=== PATIENT | male | born 1970 | race Caucasian/White ===

== ENCOUNTER 2017-01-31 09:51 | Emergency (ER) | payer BC, OTHER ==
[~2017-01-31] VITALS: Ht 177.8 cm; Wt 90.7 kg
[2017-01-31] MEDS ORDERED: PRED-220 PO (10:40)
[2017-01-31] MEDS ORDERED: CYCL-331 PO (10:40)
--- NOTE | 2017-01-31 10:40 | PHYS DOC ---
Past History Past Medical History: Other Past Surgical History: Appendectomy, Tonsillectomy, Other Alcohol Use: Occasionally Drug Use: None Adult General Chief Complaint Chief Complaint: BACK PAIN OR INJURY HPI HPI Patient is a 46 year old male who presents with complaint of low back pain. Patient states that his symptoms have been worsening over the past 3 days. Patient states that he has a history of back injury stemming from a home the accident in 2004 while serving with the . The patient states that his pain has gradually worsened since Saturday. Patient states that he resides in [place] where he is currently receiving spine surgery evaluation. Patient states that he had an MRA done within the last 2 weeks and has a consultation with the spine surgeon next week. Patient currently rates his pain as 5 out of 10. Patient states that it worsens with walking and with bending. Patient states he has pain that radiates into his right lower extremity. The patient has been ambulatory but states that this has been with much difficulty. The patient came to the emergency department requesting assistance with pain control. He states he currently as a prescription for Naprosyn but states that this has not been helping with his symptoms. Review of Systems Review of Systems Constitutional: Denies fever or chills [] HENT: Denies nasal congestion or sore throat [] Respiratory: Denies cough or shortness of breath [] Cardiovascular: Denies chest pain or edema [] GI: Denies abdominal pain, nausea, vomiting, bloody stools or diarrhea [] : Denies incontinence [] Musculoskeletal: Back pain [] Integument: Denies rash or skin lesions [] Neurologic: Denies headache, focal weakness or sensory changes [] Allergies Allergies Allergies Coded Allergies Type Severity Reaction Last Updated Verified No Known Drug Allergies 01/31/17 No Physical Exam Physical Exam Constitutional: Alert, afebrile, appears in mild to moderate discomfort. [] HENT: Normocephalic, atraumatic, bilateral external ears normal, oropharynx moist, no oral exudates, nose normal. [] Eyes: PERRLA, EOMI, conjunctiva normal, no discharge. [] Neck: Normal range of motion, no tenderness, supple, no stridor. [] Cardiovascular:Heart rate regular rhythm, no murmur [] Lungs & Thorax: Bilateral breath sounds clear to auscultation [] Abdomen: Bowel sounds normal, soft, no tenderness, no masses, no pulsatile masses. [] Skin: Warm, dry, no erythema, no rash. [] Back: Bilateral lower lumbar paraspinous muscle tenderness palpation, positive straight leg test and right lower extremity, no CVA tenderness. [] Extremities: No tenderness, no cyanosis, no clubbing, ROM intact, no edema. [] Neurologic: Alert and oriented X 3, normal motor function, normal sensory function, no focal deficits noted. [] Current Patient Data Vital Signs Vital Signs Date Time Temp Pulse Resp B/P (MAP) Pulse Ox O2 Delivery O2 Flow Rate FiO2 01/31/17 10:05 97.9 76 12 98 Room Air EKG EKG Not performed [] Radiology/Procedures Radiology/Procedures Not performed [] Course & Med Decision Making Course & Med Decision Making Pertinent Labs and Imaging studies reviewed. (See chart for details) Patient was treated with IM Norflex and prednisone. Patient will be continued on prednisone taper and was provided prescription for Flexeril for treatment of acute exacerbation of chronic back pain. Advised follow-up with the patient's spine surgeon as scheduled in 5 days. Advised return emergency department for any worsening symptoms. Patient voiced understanding and in agreement with treatment plan. Dragon Disclaimer Dragon Disclaimer This chart was dictated in whole or in part using Voice Recognition software in a busy, high-work load, and often noisy Emergency Department environment. It may contain unintended and wholly unrecognized errors or omissions. Departure Departure: Impression: Primary Impression: Acute exacerbation of chronic low back pain Disposition: 01 HOME, SELF-CARE Condition: IMPROVED Referrals: PCP,UNKNOWN (PCP) Patient Instructions: Back Pain, Adult Additional Instructions: Follow-up with your doctor in 5 days as scheduled. Return to the emergency department for any worsening symptoms. Scripts Prednisone (PREDNISONE) 10 Mg Tablet 10 MG PO UD for PREDNISONE TAPER, #39 TAB 0 Refills Take 3 tablets by mouth twice a day for 3 days, then take 2 tablets by mouth twice a day for 3 days, then take 1 tablet by mouth twice a day for 3 days, then take 1 tablet by mouth daily x 3 days, then stop. Prov: JAVIER ROBLES MD 01/31/17 Cyclobenzaprine Hcl (CYCLOBENZAPRINE HCL) 10 Mg Tablet 1 TAB PO TID Y for MUSCLE SPASMS, #30 TAB Prov: JAVIER ROBLES MD 01/31/17 JAVIER ROBLES MD January 31, 2017 10:40
[2017-01-31 11:00] VITALS: BP 148/76
[2017-01-31] MEDS ORDERED: predniSONE 10 MG TABLET PO ONE (11:15)
[2017-01-31] MEDS ORDERED: ORPHENADRINE CITRATE 60 MG/2 ML VIAL. IM ONE (11:15)
== END 2017-01-31 11:02 | disposition home or self-care (01) ==
LOC: ER 09:51
DX: G89.29 Other chronic pain (principal); M54.5 Low back pain
CPT/HCPCS: 96372; 99283; J2360; J7512